=== PATIENT | female | born 1945 | race Caucasian/White ===

== ENCOUNTER 2021-03-19 17:48 | Emergency (ER) | payer MEDICARE, OTHER ==
[2021-03-19] MEDS ORDERED: NORCO 5-325 TA1 EACH PO (20:53)
== END 2021-03-19 21:06 | disposition home or self-care (01) ==
LOC: FER 17:48
DX: S92.341A Displaced fracture of fourth metatarsal bone, right foot, initial encounter for closed fracture (principal); S92.351A Displaced fracture of fifth metatarsal bone, right foot, initial encounter for closed fracture; S92.331A Displaced fracture of third metatarsal bone, right foot, initial encounter for closed fracture; I48.91 Unspecified atrial fibrillation; E11.9 Type 2 diabetes mellitus without complications; I10 Essential (primary) hypertension; F17.210 Nicotine dependence, cigarettes, uncomplicated; X58.XXXA Exposure to other specified factors, initial encounter
CPT/HCPCS: 73630